=== PATIENT | male | born 1955 | race Caucasian/White ===

== ENCOUNTER 2016-10-15 13:34 | Emergency (ER) | payer OTHER ==
[~2016-10-15] VITALS: Ht 177.8 cm; Wt 82.0 kg
[~2016-10-15 13:34] MED LIST: HYDR-2086 PO; TRAZ50TA18 PO; [UNRECOGNIZED DRUG - OTHER] PO
[2016-10-15 13:44] VITALS: Ht 177.8 cm; Wt 82.0 kg
[2016-10-15 15:59] LABS: URINE BLOOD (Dip) POC 1+ (NEGATIVE)
--- NOTE | 2016-10-15 18:39 | ERD ---
ER Documentation Chief Complaint Date/Time DATE: 10/15/16 TIME: 18:37 Chief Complaint Pt with hematuria X 2 days, frequency. HPI Patient is a 61-year-old male with no medical problems who presents with blood in his urine. He said that it started today. He felt like it might be a UTI as he has had this in the past. However he has no pain with urination. The patient is at increased frequency. Upon review of old medical records this is the patient's fourth visit to the ER since 2008. He does not know the name of his primary doctor. He has had no treatment as of yet. ROS All systems reviewed and are negative except as per history of present illness. Medications Home Meds Reported Medications Hydrocodone Bit-Acetaminophen* (Vicodin*) Unknown Strength Tab, PO Q4H Y for PAIN, TAB 11/01/13 Trazodone Hcl* (Desyrel*) 50 Mg Tablet, 50 MG PO HS 12/29/10 Carisoprodol-Aspirin (Soma Compound) 1 Tab Tab, 1 TAB PO PRN 12/29/10 Allergies Allergies: Coded Allergies: No Known Drug Allergies (Verified Allergy, Mild, 10/15/16) PMhx/Soc Medical and Surgical Hx: pt denies Medical Hx, pt denies Surgical Hx History of Surgery: No Anesthesia Reaction: No Hx Neurological Disorder: No Hx Respiratory Disorders: No Hx Cardiac Disorders: No Hx Psychiatric Problems: No Hx Miscellaneous Medical Probl: No Hx Alcohol Use: No Hx Substance Use: No Hx Tobacco Use: No Smoking Status: Never smoker FmHx Family History: No diabetes Physical Exam Vitals Vital Signs Date Time Temp Pulse Resp B/P Pulse Ox O2 Delivery O2 Flow Rate FiO2 10/15/16 13:44 98.3 85 16 135/73 97 Physical Exam Const: No acute distress Head: Atraumatic Eyes: Normal Conjunctiva ENT: Normal External Ears, Nose and Mouth. Neck: Full range of motion..~ No meningismus. Resp: Clear to auscultation bilaterally Cardio: Regular rate and rhythm, no murmurs Abd: Soft, non tender, non distended. Normal bowel sounds Skin: No petechiae or rashes Back: No midline or flank tenderness Ext: No cyanosis, or edema Neur: Awake and alert Psych: Normal Mood and Affect Results 24 hrs Laboratory Tests Test 7/10/17 16:03 Bedside Urine pH (LAB) 6.5 Bedside Urine Protein (LAB) Negative Bedside Urine Glucose (UA) Negative Bedside Urine Ketones (LAB) Negative Bedside Urine Blood 1+ Bedside Urine Nitrite (LAB) Negative Bedside Urine Leukocyte Esterase (L Trace Procedures/MDM Urine dip shows no obvious infection. Urine culture is pending. Patient is a 61-year-old male presents with hematuria. The patient has no obvious infection in the emergency department but I did send a urine culture. I will not give him antibiotics at this time. He will need an outpatient workup for hematuria. I did discuss with him the possibility of bladder cancer although I think this is less likely. The patient should follow-up with his primary doctor within 24-48 hours and can return sooner for any worsening symptoms. The patient understands the plan is okay for discharge at this time. I doubt kidney stone as he has no pain. I doubt pyelonephritis. Departure Diagnosis: Primary Impression: Hematuria Condition: Fair Patient Instructions: Hematuria Additional Instructions: Call your primary care doctor TOMORROW for an appointment during the next 1-2 days.See the doctor sooner or return here if your condition worsens before your appointment time. LENI HIGGINBOTHAM MD Oct 15, 2016 18:39
== END 2016-10-15 16:28 | disposition home or self-care (01) ==
LOC: FTE 13:34
DX: R31.9 Hematuria, unspecified (principal)
CPT/HCPCS: 81003; 87086; Z7502; 99283